=== PATIENT | female | born 1965 | race Caucasian/White ===

== ENCOUNTER 2025-01-11 14:42 | Emergency (ER) | payer BC ==
[~2025-01-11] VITALS: Ht 149.9 cm; Wt 45.4 kg
[~2025-01-11 14:42] MED LIST: ALPRAZOLAM0.5 M3 JT; HYDROCODONE BIT1 T20 PO; LIDEX 0.05% CRE15 GM T; MEDROL DOSEPAK4 MG PO; VISTARIL25 M2 PO
[2025-01-11] MEDS ORDERED: METHOCARBAMOL500 M1 PO (16:28)
[2025-01-11] MEDS ORDERED: NAPROXEN500 MG PO (16:28)
[2025-01-11] MEDS ORDERED: METHOCARBAMOL 500 MG TAB PO ONE (16:30)
[2025-01-11] MEDS ORDERED: NAPROXEN 250 MG TAB PO ONE (16:30)
== END 2025-01-11 16:43 | disposition home or self-care (01) ==
LOC: ED 14:42
DX: S13.9XXA Sprain of joints and ligaments of unspecified parts of neck, initial encounter (principal); S33.5XXA Sprain of ligaments of lumbar spine, initial encounter; S60.012A Contusion of left thumb without damage to nail, initial encounter; S80.02XA Contusion of left knee, initial encounter; S80.01XA Contusion of right knee, initial encounter; S09.90XA Unspecified injury of head, initial encounter; Z88.6 Allergy status to analgesic agent; V49.40XA Driver injured in collision with unspecified motor vehicles in traffic accident, initial encounter; Y93.89 Activity, other specified; Y92.410 Unspecified street and highway as the place of occurrence of the external cause; Y99.8 Other external cause status

== ENCOUNTER 2025-01-20 14:38 | Emergency (ER) | payer BC ==
[~2025-01-20 14:38] MED LIST changes: +METHOCARBAMOL500 M1 PO; +NAPROXEN500 MG PO
[2025-01-20] MEDS ORDERED: VIBRAMYCIN100 MG PO (14:54)
== END 2025-01-20 15:07 | disposition home or self-care (01) ==
LOC: ED 14:38
DX: L73.9 Follicular disorder, unspecified (principal); Z88.6 Allergy status to analgesic agent; Z79.899 Other long term (current) drug therapy